=== PATIENT | female | born 1995 | race American Indian/Alaskan Native ===

== ENCOUNTER 2018-11-27 23:04 | Emergency (ER) | payer SELFPAY ==
--- NOTE | 2018-11-28 00:19 | XRay Report ---
CHEST 1 VIEW INDICATION / CLINICAL INFORMATION: Chest Pain. COMPARISON: None available. FINDINGS: SUPPORT DEVICES: None. HEART / MEDIASTINUM: No significant abnormality. LUNGS / PLEURA: No significant pulmonary or pleural abnormality. No pneumothorax. ADDITIONAL FINDINGS: No significant additional findings. IMPRESSION: 1. No acute findings. Signer Name: Armen Lynne MD Signed: 11/28/2018 12:15 AM Workstation Name: [id number]
[2018-11-28] MEDS ORDERED: SOLU-Medrol IM ONE (01:07)
[2018-11-28 01:51] LABS: HCG Qualitative,Urine Negative (Negative)
[2018-11-28 01:55] LABS: Bilirubin,Urine NEG (Negative); Blood,Urine NEG (Negative); Color,Urine Yellow (Yellow); Mucus,Urine 1+ /HPF; Protein,Urine <15 mg/dL mg/dL (Negative)
--- NOTE | 2018-11-28 02:48 | Emergency Department Report ---
- General Chief Complaint: Upper Respiratory Infection Stated Complaint: CHEST/ABDOMINAL PAIN Time Seen by Provider: 11/28/18 00:55 Source: patient Mode of arrival: Ambulatory Limitations: No Limitations - History of Present Illness Initial Comments: Patient is a 23-year-old -Russian female who is 2 months from a presents to the ED, no persistent dry cough with nasal sinus congestion and mild lower abdominal discomfort for the last 1 week, worse in the last 3 days. Patient denies fever, chills, nausea, vomiting, dizziness, diarrhea, shortness of breath, sore throat, headache, chest pain, no back pain, dysuria or urinary frequency and urgency. MD Complaint: cough, rhinorrhea, nasal congestion, other (suprapubic discomfort) -: Sudden, week(s) (1) Severity: moderate Severity scale (0 -10): 4 Quality: dull Consistency: intermittent Improves With: nothing Worsens With: nothing Associated Symptoms: denies other symptoms, cough, abdominal pain (lower, discomfort). denies: fever, chills, myalgias, diaphoresis, chest pain, shortness of breath, nausea, vomiting, dysuria, confusion, weight loss, epistaxis, hoarseness Treatments Prior to Arrival: none - Related Data Previous Rx's Medication Instructions Recorded Last Taken Type Azithromycin [Zithromax Z-SUN] 250 mg PO DAILY #6 tablet 11/28/18 Unknown Rx Benzonatate [Tessalon Perles] 100 mg PO Q8HR #30 capsule 11/28/18 Unknown Rx Ibuprofen [Motrin] 600 mg PO Q8H PRN #20 tablet 11/28/18 Unknown Rx methylPREDNISolone [Medrol 4MG 4 mg PO DAILY #21 tab.ds.pk 11/28/18 Unknown Rx DOSEPAK (21 tabs)] Allergies Allergy/AdvReac Type Severity Reaction Status Date / Time No Known Allergies Allergy Verified 11/27/18 23:50 ED Review of Systems ROS: Stated complaint: CHEST/ABDOMINAL PAIN Other details as noted in HPI Constitutional: denies: chills, fever Eyes: denies: eye pain, eye discharge, vision change ENT: congestion. denies: ear pain, throat pain, dental pain, hearing loss Respiratory: cough. denies: shortness of breath, wheezing Cardiovascular: denies: chest pain, palpitations Endocrine: no symptoms reported. denies: increased thirst, increased urine, unexplained weight gain Gastrointestinal: denies: abdominal pain, nausea, diarrhea Genitourinary: denies: urgency, dysuria, discharge Musculoskeletal: denies: back pain, joint swelling, arthralgia Skin: denies: rash, lesions Neurological: denies: headache, weakness, paresthesias Psychiatric: denies: anxiety, depression Hematological/Lymphatic: denies: easy bleeding, easy bruising ED Past Medical Hx - Past Medical History Previous Medical History?: Yes Additional medical history: bronchitis - Surgical History Past Surgical History?: Yes Additional Surgical History: - Social History Smoking Status: Never Smoker Substance Use Type: None - Medications Home Medications: Home Medications Medication Instructions Recorded Confirmed Last Taken Type Azithromycin [Zithromax Z-SUN] 250 mg PO DAILY #6 tablet 11/28/18 Unknown Rx Benzonatate [Tessalon Perles] 100 mg PO Q8HR #30 capsule 11/28/18 Unknown Rx Ibuprofen [Motrin] 600 mg PO Q8H PRN #20 tablet 11/28/18 Unknown Rx methylPREDNISolone [Medrol 4MG 4 mg PO DAILY #21 tab.ds.pk 11/28/18 Unknown Rx DOSEPAK (21 tabs)] ED Physical Exam - General Limitations: No Limitations General appearance: alert, in no apparent distress - Head Head exam: Present: atraumatic, normocephalic, normal inspection - Eye Eye exam: Present: normal appearance, PERRL, EOMI. Absent: scleral icterus Pupils: Present: normal accommodation - ENT ENT exam: Present: normal exam, normal orophraynx, mucous membranes moist, TM's normal bilaterally, normal external ear exam, other (Grossly congested nasal passages) - Neck Neck exam: Present: normal inspection, full ROM. Absent: tenderness, meningismus, lymphadenopathy, thyromegaly - Respiratory Respiratory exam: Present: normal lung sounds bilaterally. Absent: respiratory distress, wheezes, rales, rhonchi, chest wall tenderness, accessory muscle use, decreased breath sounds, prolonged expiratory - Cardiovascular Cardiovascular Exam: Present: regular rate, normal rhythm, normal heart sounds. Absent: systolic murmur, diastolic murmur, rubs, gallop - GI/Abdominal GI/Abdominal exam: Present: soft, normal bowel sounds. Absent: distended, guarding, hyperactive bowel sounds, hypoactive bowel sounds, mass - Rectal Rectal exam: Present: deferred - Extremities Exam Extremities exam: Present: normal inspection, full ROM, normal capillary refill - Back Exam Back exam: Present: normal inspection, full ROM. Absent: tenderness, CVA tenderness (R), CVA tenderness (L), muscle spasm, paraspinal tenderness, vertebral tenderness - Neurological Exam Neurological exam: Present: alert, oriented X3, CN II-XII intact, normal gait, reflexes normal - Psychiatric Psychiatric exam: Present: normal affect, normal mood - Skin Skin exam: Present: warm, dry, intact, normal color. Absent: rash ED Course Vital Signs 11/27/18 11/28/18 23:10 03:10 Temperature 98.7 F 98.3 F Pulse Rate 71 78 Respiratory 18 18 Rate Blood Pressure 119/73 Blood Pressure 124/70 [Left] O2 Sat by Pulse 100 98 Oximetry - Reevaluation(s) Reevaluation #1: 11/28/18 03:38 Patient is alert and oriented 3 and is not in distress with normal vital signs. Chest x-ray shows no acute cardiopulmonary abnormalities. Urinalysis is unremarkable. Patient discharged home on medications and advised to follow-up with her primary care physician in 7-10 days for reevaluation. Patient was also advised to return to the ED immediately if symptoms get worse. ED Medical Decision Making - Radiology Data Radiology results: report reviewed, image reviewed chest x-ray: No acute cardiopulmonary abnormalities - Medical Decision Making Patient is alert and oriented 3 and is not in distress with normal vital signs. Chest x-ray shows no acute cardiopulmonary abnormalities. Urinalysis is unremarkable. Patient discharged home on medications and advised to follow-up with her primary care physician in 7-10 days for reevaluation. Patient was also advised to return to the ED immediately if symptoms get worse. - Differential Diagnosis acute URI; Acute bronchitis, acute UTI, Viral URI Critical care attestation.: If time is entered above; I have spent that time in minutes in the direct care of this critically ill patient, excluding procedure time. ED Disposition Clinical Impression: Acute upper respiratory infection Acute bronchitis Qualifiers: Bronchitis organism: unspecified organism Qualified Code(s): J20.9 - Acute bronchitis, unspecified Disposition: - TO HOME OR SELFCARE Is pt being admited?: No Does the pt Need Aspirin: No Condition: Stable Instructions: Acute Bronchitis (ED) Additional Instructions: Take medications with food, drink plenty of fluids and follow-up with your primary care physician in 5-7 days for reevaluation. Return to the ED immediately if symptoms get worse. Prescriptions: methylPREDNISolone [Medrol 4MG DOSEPAK (21 tabs)] 4 mg PO DAILY #21 tab.ds.pk Ibuprofen [Motrin] 600 mg PO Q8H PRN #20 tablet PRN Reason: Pain Benzonatate [Tessalon Perles] 100 mg PO Q8HR #30 capsule Azithromycin [Zithromax Z-SUN] 250 mg PO DAILY #6 tablet Referrals: [facility] [Outside] - 3-5 Days Time of Disposition: 02:45 Print Language: [place]
[2018-11-28 03:25] VITALS: BP 124/70
== END 2018-11-28 03:10 | disposition home or self-care (01) ==
LOC: ED 23:04
DX: J20.9 Acute bronchitis, unspecified (principal); J06.9 Acute upper respiratory infection, unspecified
CPT/HCPCS: 71045; 81001; 81025; 93005; 93010; 96372; 99283; J2930

== ENCOUNTER 2019-05-12 15:39 | Emergency (ER) | payer SELFPAY | END 2019-05-12 17:30 | disposition left against medical advice (07) | LOC: ED 15:39 | DX: J00 Acute nasopharyngitis [common cold] (principal); Z53.21 Procedure and treatment not carried out due to patient leaving prior to being seen by health care provider ==

== ENCOUNTER 2019-07-11 20:52 | Emergency (ER) | payer SELFPAY | END 2019-07-11 23:10 | disposition left against medical advice (07) | LOC: ED 20:52 | DX: N93.9 Abnormal uterine and vaginal bleeding, unspecified (principal); Z53.21 Procedure and treatment not carried out due to patient leaving prior to being seen by health care provider ==

== ENCOUNTER 2019-07-25 17:50 | Emergency (ER) | payer SELFPAY ==
--- NOTE | 2019-07-25 18:40 | Event Note ---
ED Screening Note Date of service: 07/25/19 Time: 18:38 ED Screening Note: 24 y o female presents with intermittent bleeding for 1 month states heavy clotting also cc of pelvic pain This initial assessment/diagnostic orders/clinical plan/treatment(s) is/are subject to change based on patients health status, clinical progression and re- assessment by fellow clinical providers in the ED. Further treatment and workup at subsequent clinical providers discretion. Patient/guardian urged not to elope from the ED as their condition may be serious if not clinically assessed and managed. Initial orders include: ua,upt cbc
[2019-07-25 19:12] LABS: Basophils % (Auto) 0.6 % (0.0-1.8); Eosinophils # (Auto) 0.1 K/mm3 (0.0-0.4); Eosinophils % (Auto) 1.4 % (0.0-4.3); Hematocrit 37.8 % (30.3-42.9); Hemoglobin 12.4 gm/dl (10.1-14.3); Lymphocytes # (Auto) 1.9 K/mm3 (1.2-5.4); Mean Corpuscular HGB Conc 33 % (30-34); Mean Corpuscular Volume 83 fl (79-97); Monocytes # (Auto) 0.6 K/mm3 (0.0-0.8); Monocytes % (Auto) 8.5 % (0.0-7.3); Platelet Count 305 K/mm3 (140-440); Red Blood Count 4.57 M/mm3 (3.65-5.03)
[2019-07-25 19:36] LABS: Bacteria,Urine 1+ /HPF (Negative); Bilirubin,Urine NEG (Negative); Blood,Urine NEG (Negative); Color,Urine Yellow (Yellow); Mucus,Urine FEW /HPF; Protein,Urine <15 mg/dL mg/dL (Negative); Urobilinogen,Urine < 2.0 mg/dL (<2.0)
[2019-07-25] MEDS ORDERED: AZITHROMYCIN 250 MG TAB PO ONE (21:35)
[2019-07-25] MEDS ORDERED: LIDOCAINE-MPF (1%) 10 MG/1 ML VIAL 5 ML INFILTRATI ONE (21:35)
[2019-07-25] MEDS ORDERED: ONDANSETRON 4 MG ODT TAB PO ONE (21:35)
[2019-07-25] MEDS ORDERED: ACETAMINOPHEN 500 MG TAB PO ONE (21:35)
--- NOTE | 2019-07-25 23:08 | Emergency Department Report ---
ED Female HPI - General Chief complaint: Urogenital-Female Stated complaint: BLEEDING Source: patient Mode of arrival: Ambulatory Limitations: No Limitations - History of Present Illness Initial comments: Patient is [id number] 24-year-old -Mexican female who presents to the ED with complaint of acute onset persistent suprapubic pain, vaginal discharge, and persistent intermittent heavy vaginal bleeding, dyspareunia and vaginal pain for the last 1 month, worse in the last 2 days. Patient states that she is not on any control. Patient denies dizziness, fever, chills, nausea and vomiting or diarrhea, change in vision no syncope, low back pain, headache, chest pain or shortness of breath. MD Complaint: vaginal bleeding, vaginal discharge, pelvic pain, possible STD, other (Vaginal discharge) -: Sudden, month(s) (1) Location: suprapubic, other (vaginal) Radiation: suprapubic Severity: severe Severity scale (0 -10): 7 Quality: cramping, sharp, aching Consistency: constant Improves with: none Worsens with: intercourse Are you Now?: No Last Menstrual Period: 07/16/19 EDC: 04/21/20 - Related Data Sexually active: Yes : 11 Para: 1 A: 10 Previous Rx's Medication Instructions Recorded Last Taken Type Azithromycin [Zithromax Z-SUN] 250 mg PO DAILY #6 tablet 11/28/18 Unknown Rx Benzonatate [Tessalon Perles] 100 mg PO Q8HR #30 capsule 11/28/18 Unknown Rx methylPREDNISolone [Medrol 4MG 4 mg PO DAILY #21 tab.ds.pk 11/28/18 Unknown Rx DOSEPAK (21 tabs)] Ibuprofen [Motrin 600 MG tab] 600 mg PO Q8H PRN #30 tablet 07/25/19 Unknown Rx Ondansetron [Zofran Odt] 4 mg PO Q8HR #15 tab.rapdis 07/25/19 Unknown Rx cephALEXin [Keflex] 500 mg PO Q8HR #30 capsule 07/25/19 Unknown Rx medroxyPROGESTERone ACETATE 10 mg PO DAILY #10 tablet 07/25/19 Unknown Rx [Medroxyprogesterone Acetate] metroNIDAZOLE [Flagyl] 500 mg PO Q12HR #14 tab 07/25/19 Unknown Rx Allergies Allergy/AdvReac Type Severity Reaction Status Date / Time No Known Allergies Allergy Verified 11/27/18 23:50 ED Review of Systems ROS: Stated complaint: BLEEDING Other details as noted in HPI Constitutional: denies: chills, fever Eyes: denies: eye pain, eye discharge, vision change ENT: denies: ear pain, throat pain Respiratory: denies: cough, shortness of breath, wheezing Cardiovascular: denies: chest pain, palpitations Endocrine: no symptoms reported Gastrointestinal: abdominal pain (pelvic pain). denies: nausea, diarrhea Genitourinary: urgency, dysuria, frequency, discharge, abnormal menses (vaginal bleeding) Musculoskeletal: denies: back pain, joint swelling, arthralgia Skin: denies: rash, lesions Neurological: denies: headache, weakness, paresthesias Psychiatric: denies: anxiety, depression Hematological/Lymphatic: denies: easy bleeding, easy bruising ED Past Medical Hx - Past Medical History Previous Medical History?: No Additional medical history: bronchitis - Surgical History Past Surgical History?: Yes Additional Surgical History: x1 - Social History Smoking Status: Never Smoker Substance Use Type: None - Medications Home Medications: Home Medications Medication Instructions Recorded Confirmed Last Taken Type Azithromycin [Zithromax Z-SUN] 250 mg PO DAILY #6 tablet 11/28/18 Unknown Rx Benzonatate [Tessalon Perles] 100 mg PO Q8HR #30 capsule 11/28/18 Unknown Rx methylPREDNISolone [Medrol 4MG 4 mg PO DAILY #21 tab.ds.pk 11/28/18 Unknown Rx DOSEPAK (21 tabs)] Ibuprofen [Motrin 600 MG tab] 600 mg PO Q8H PRN #30 tablet 07/25/19 Unknown Rx Ondansetron [Zofran Odt] 4 mg PO Q8HR #15 tab.rapdis 07/25/19 Unknown Rx cephALEXin [Keflex] 500 mg PO Q8HR #30 capsule 07/25/19 Unknown Rx medroxyPROGESTERone ACETATE 10 mg PO DAILY #10 tablet 07/25/19 Unknown Rx [Medroxyprogesterone Acetate] metroNIDAZOLE [Flagyl] 500 mg PO Q12HR #14 tab 07/25/19 Unknown Rx ED Physical Exam - General Limitations: No Limitations General appearance: alert, in no apparent distress - Head Head exam: Present: atraumatic, normocephalic - Eye Eye exam: Present: normal appearance, PERRL, EOMI Pupils: Present: normal accommodation - ENT ENT exam: Present: normal exam, normal orophraynx, mucous membranes moist, TM's normal bilaterally, normal external ear exam - Neck Neck exam: Present: normal inspection, full ROM. Absent: tenderness - Respiratory Respiratory exam: Present: normal lung sounds bilaterally. Absent: respiratory distress, wheezes, rales, rhonchi, chest wall tenderness, accessory muscle use - Cardiovascular Cardiovascular Exam: Present: regular rate, normal rhythm, normal heart sounds. Absent: systolic murmur, diastolic murmur, rubs, gallop - GI/Abdominal GI/Abdominal exam: Present: soft, tenderness (Moderate suprapubic tenderness), normal bowel sounds. Absent: guarding, rebound, hyperactive bowel sounds, hypoactive bowel sounds - External exam: Present: normal external exam Speculum exam: Present: vaginal discharge, cervical discharge Bi-manual exam: Present: cervical motion tendernes, adnexal tenderness, uterine tenderness, other (Female RN child guidance counselor present during the pelvic exam) - Extremities Exam Extremities exam: Present: normal inspection, full ROM, normal capillary refill - Back Exam Back exam: Present: normal inspection, full ROM. Absent: tenderness, CVA te nderness (R), muscle spasm, paraspinal tenderness - Neurological Exam Neurological exam: Present: alert, oriented X3, CN II-XII intact, normal gait, reflexes normal - Psychiatric Psychiatric exam: Present: normal affect, normal mood - Skin Skin exam: Present: warm, dry, intact, normal color. Absent: rash ED Course Vital Signs 07/25/19 18:39 Temperature 97.9 F Pulse Rate 82 Respiratory 18 Rate Blood Pressure 131/77 O2 Sat by Pulse 99 Oximetry ED Medical Decision Making - Lab Data Result diagrams: 07/25/19 18:52 - Medical Decision Making This is a 24-year-old female who presented to the ED with complaint of acute onset persistent pelvic pain for 1 month with intermittent vaginal bleeding and dyspareunia as well as vaginal discharge. In the ED, patient is alert and oriented x3 and is not in distress. Urinalysis shows significant urinary tract infection but other lab test results are unremarkable. Pelvic exam shows signs of pelvic inflammatory disease. Patient was treated in the ED with azithromycin 1 g p.o. x1, also given Rocephin 1 g intramuscular injection. Patient was also treated for pain and on reevaluation, patient's pain is well controlled with medications. Wet prep was positive for Gardnerella vaginalis consistent with bacterial vaginosis. Patient was discharged home on antibiotics and pain medications. Patient was advised to follow-up with her [employer] physician or primary care physician in 7 to 10 days for reevaluation. Patient was advised to return to the ED immediately if symptoms get worse. - Differential Diagnosis PID; UTI; Appendicitis; Ectopic ; STD; Ovarian cyst; Colitis Critical care attestation.: If time is entered above; I have spent that time in minutes in the direct care of this critically ill patient, excluding procedure time. ED Disposition Clinical Impression: Acute pelvic inflammatory disease (PID), Acute urinary tract infection, Bacterial vaginosis, Pelvic pain, Dysfunctional uterine hemorrhage Disposition: TO HOME OR SELFCARE Is pt being admited?: No Does the pt Need Aspirin: No Condition: Stable Instructions: Bacterial Vaginosis (ED), Pelvic Inflammatory Disease (ED), Urinary Tract Infection in Women (ED), Dysfunctional Uterine Bleeding (ED) Additional Instructions: Your signs and symptoms are consistent with pelvic inflammatory disease, condition which can be caused by chlamydia, gonorrhea and other STDs. You were treated for this during your visit to the ED today. Therefore ensure that you sexual partner gets tested and treated at the [facility] for the same. Therefore take medications with food, drink plenty of fluids and follow-up with your primary care physician in 7 to 10 days for reevaluation. Return to the ED immediately if symptoms get worse. Prescriptions: metroNIDAZOLE [Flagyl] 500 mg PO Q12HR #14 tab cephALEXin [Keflex] 500 mg PO Q8HR #30 capsule medroxyPROGESTERone ACETATE [Medroxyprogesterone Acetate] 10 mg PO DAILY #10 tablet Ibuprofen [Motrin 600 MG tab] 600 mg PO Q8H PRN #30 tablet PRN Reason: Pain Ondansetron [Zofran Odt] 4 mg PO Q8HR #15 tab.rapdis Referrals: [facility] [Outside] - 3-5 Days Forms: STI Treatment and Prevention, Work/School Release Form(ED) Time of Disposition: 23:10 Print Language: WELSH
[2019-07-26 05:16] VITALS: BP 120/80
== END 2019-07-25 23:30 | disposition home or self-care (01) ==
LOC: ED 17:50
DX: N76.0 Acute vaginitis (principal); N73.0 Acute parametritis and pelvic cellulitis; N39.0 Urinary tract infection, site not specified; R10.2 Pelvic and perineal pain; N93.8 Other specified abnormal uterine and vaginal bleeding; Z79.899 Other long term (current) drug therapy; Z98.890 Other specified postprocedural states
CPT/HCPCS: 36415; 81001; 84702; 84703; 85025; 86900; 86901; 87086; 87210; 87591; 96372; 99284; J0696; Q0162

== ENCOUNTER 2021-01-03 00:38 | Emergency (ER) | payer SELFPAY | END 2021-01-03 00:43 | disposition left against medical advice (07) | LOC: ED 00:38 | DX: J40 Bronchitis, not specified as acute or chronic (principal); Z53.21 Procedure and treatment not carried out due to patient leaving prior to being seen by health care provider ==

== ENCOUNTER 2021-08-19 13:57 | Emergency (ER) | payer SELFPAY | END 2021-08-19 18:03 | disposition left against medical advice (07) | LOC: ED 13:57 | DX: M54.9 Dorsalgia, unspecified (principal); Z53.21 Procedure and treatment not carried out due to patient leaving prior to being seen by health care provider ==

== ENCOUNTER 2021-09-04 13:16 | Emergency (ER) | payer SELFPAY ==
[2021-09-04 16:09] LABS: Bacteria,Urine 1+ /HPF (Negative); Bilirubin,Urine NEG (Negative); Blood,Urine MOD (Negative); Color,Urine Amber (Yellow); Mucus,Urine FEW /HPF
[2021-09-04 16:49] LABS: WBC,Urine > 182.0 /HPF (0.0-6.0)
[2021-09-04] MEDS ORDERED: KETOROLAC 30 MG/1 ML INJ IM ONE (17:33)
[2021-09-04] MEDS ORDERED: ONDANSETRON 4 MG ODT TAB PO ONE (17:33)
[2021-09-04] MEDS ORDERED: LIDOCAINE-MPF (1%) 10 MG/1 ML VIAL 5 ML INFILTRATI ONE ×2 (17:33→21:00)
[2021-09-04] MEDS ORDERED: FAMOTIDINE 20 MG TAB PO ONE ×2 (17:34→21:00)
--- NOTE | 2021-09-04 18:52 | XRay Report ---
CHEST 2 VIEWS INDICATION / CLINICAL INFORMATION: chest pain. FINDINGS: SUPPORT DEVICES: None. HEART / MEDIASTINUM: No significant abnormality. LUNGS / PLEURA: No significant pulmonary or pleural abnormality. No pneumothorax. ADDITIONAL FINDINGS: No significant additional findings. IMPRESSION: 1. No acute findings. Signer Name: Vick Kelly MD Signed: 09/04/2021 6:47 PM Workstation Name: [id number]
[2021-09-04 20:07] LABS: Alanine Aminotransferase 40 units/L (7-56); Albumin 3.4 g/dL (3.9-5); BUN/Creatinine Ratio 9; Blood Urea Nitrogen 6 mg/dL (7-17); Calcium 8.8 mg/dL (8.4-10.2); Hemolysis Index 0
--- NOTE | 2021-09-04 20:21 | Emergency Department Report ---
ED General Adult HPI - General Chief complaint: Chest Pain Stated complaint: CHEST PAIN/FEVER/KIDNEY PAIN Source: patient Mode of arrival: Ambulatory Limitations: No Limitations - History of Present Illness Initial comments: Patient is a A0 26-year-old -[place] female with no past medical history presents to the ED with complaint of acute onset persistent low back p ain, right flank pain, suprapubic pressure, urinary frequency and urgency, dysuria, mid posterior thoracic pain for the last 1 month. Patient states that she has been taking [id number] Pyridium for suspected urinary tract infection but that the symptoms have been persistent and constant. Patient also states that in the last 3 days, the symptoms have worsened such that she has not even been able to leave her bed because of worsening back pain and nausea and vomiting. Patient denies dizziness, syncope, fever, chills, diarrhea, chest pain or shortness of breath, neck pain, headache, lightheadedness, vaginal bleeding or vaginal discharge. MD Complaint: Nausea and vomiting, right flank pain, low back pain, mid back pain -: Sudden, month(s) (1) Location: back, abdomen Radiation: non-radiation Severity scale (0 -10): 7 Quality: aching, sharp Consistency: constant Improves with: none Worsens with: movement Associated Symptoms: denies other symptoms, loss of appetite, malaise, nausea/vomiting. denies: confusion, chest pain, cough, diaphoresis, fever/chills, headaches, rash, seizure, shortness of breath, syncope, weakness Treatments Prior to Arrival: none - Related Data Previous Rx's Medication Instructions Recorded Last Taken Type Azithromycin [Zithromax Z-SUN] 250 mg PO DAILY #6 tablet 11/28/18 Unknown Rx Benzonatate [Tessalon Perles] 100 mg PO Q8HR #30 capsule 11/28/18 Unknown Rx methylPREDNISolone [Medrol 4MG 4 mg PO DAILY #21 tab.ds.pk 11/28/18 Unknown Rx DOSEPAK (21 tabs)] cephALEXin [Keflex] 500 mg PO Q8HR #30 capsule 07/25/19 Unknown Rx medroxyPROGESTERone ACETATE 10 mg PO DAILY #10 tablet 07/25/19 Unknown Rx [Medroxyprogesterone Acetate] Doxycycline Hyclate 100 mg PO Q12H #20 tablet. 11/27/19 Unknown Rx Fluconazole (Nf) [Diflucan TAB] 150 mg PO ONCE #1 tablet 11/27/19 Unknown Rx Metoclopramide [Reglan] 10 mg PO Q8H PRN #21 tab 11/27/19 Unknown Rx Fluconazole [Diflucan TAB] 200 mg PO QDAY #1 tablet 09/04/21 Unknown Rx Ibuprofen [Motrin 600 MG tab] 600 mg PO Q8H PRN #30 tablet 09/04/21 Unknown Rx Ondansetron [Zofran ODT TAB] 4 mg PO Q6HR PRN #20 tab.rapdis 09/04/21 Unknown Rx Sulfamethoxazole/Trimethoprim 1 each PO Q12H #20 tablet 09/04/21 Unknown Rx [Bactrim DS TAB] Allergies Allergy/AdvReac Type Severity Reaction Status Date / Time No Known Allergies Allergy Verified 11/27/18 23:50 ED Review of Systems ROS: Stated complaint: CHEST PAIN/FEVER/KIDNEY PAIN Other details as noted in HPI Constitutional: malaise, weakness. denies: chills, fever Eyes: denies: eye pain, eye discharge, vision change ENT: denies: ear pain, throat pain Respiratory: denies: cough, shortness of breath, wheezing Cardiovascular: chest pain. denies: palpitations Endocrine: no symptoms reported Gastrointestinal: abdominal pain ( right flank pain), nausea, vomiting. denies: diarrhea, hematochezia Genitourinary: urgency, dysuria, frequency. denies: discharge, abnormal menses, dyspareunia Musculoskeletal: back pain (Mid and low back pain), arthralgia, myalgia. denies: joint swelling Skin: denies: rash, lesions Neurological: denies: headache, weakness, paresthesias Psychiatric: denies: anxiety, depression Hematological/Lymphatic: denies: easy bleeding, easy bruising ED Past Medical Hx - Past Medical History Additional medical history: bronchitis - Surgical History Additional Surgical History: x1 - Social History Smoking Status: Never Smoker Substance Use Type: None - Medications Home Medications: Home Medications Medication Instructions Recorded Confirmed Last Taken Type Azithromycin [Zithromax Z-SUN] 250 mg PO DAILY #6 tablet 11/28/18 Unknown Rx Benzonatate [Tessalon Perles] 100 mg PO Q8HR #30 capsule 11/28/18 Unknown Rx methylPREDNISolone [Medrol 4MG 4 mg PO DAILY #21 tab.ds.pk 11/28/18 Unknown Rx DOSEPAK (21 tabs)] cephALEXin [Keflex] 500 mg PO Q8HR #30 capsule 07/25/19 Unknown Rx medroxyPROGESTERone ACETATE 10 mg PO DAILY #10 tablet 07/25/19 Unknown Rx [Medroxyprogesterone Acetate] Doxycycline Hyclate 100 mg PO Q12H #20 tablet. 11/27/19 Unknown Rx Fluconazole (Nf) [Diflucan TAB] 150 mg PO ONCE #1 tablet 11/27/19 Unknown Rx Metoclopramide [Reglan] 10 mg PO Q8H PRN #21 tab 11/27/19 Unknown Rx Fluconazole [Diflucan TAB] 200 mg PO QDAY #1 tablet 09/04/21 Unknown Rx Ibuprofen [Motrin 600 MG tab] 600 mg PO Q8H PRN #30 tablet 09/04/21 Unknown Rx Ondansetron [Zofran ODT TAB] 4 mg PO Q6HR PRN #20 tab.rapdis 09/04/21 Unknown Rx Sulfamethoxazole/Trimethoprim 1 each PO Q12H #20 tablet 09/04/21 Unknown Rx [Bactrim DS TAB] ED Physical Exam - General Limitations: No Limitations General appearance: alert, in no apparent distress - Head Head exam: Present: atraumatic, normocephalic, normal inspection - Eye Eye exam: Present: normal appearance, PERRL, EOMI Pupils: Present: normal accommodation - ENT ENT exam: Present: normal exam, normal orophraynx, mucous membranes moist, TM's normal bilaterally, normal external ear exam - Neck Neck exam: Present: normal inspection, full ROM. Absent: tenderness - Respiratory Respiratory exam: Present: normal lung sounds bilaterally. Absent: respiratory distress, wheezes, rales, rhonchi, chest wall tenderness, accessory muscle use, decreased breath sounds, prolonged expiratory - Cardiovascular Cardiovascular Exam: Present: regular rate, normal rhythm, normal heart sounds. Absent: systolic murmur, diastolic murmur, rubs, gallop - GI/Abdominal GI/Abdominal exam: Present: soft, tenderness (Palpable right flank tenderness), normal bowel sounds. Absent: guarding, rebound, hyperactive bowel sounds, hypoactive bowel sounds, organomegaly, mass - Bi-manual exam: Present: other (Pelvic exam deferred at this time) - Extremities Exam Extremities exam: Present: normal inspection, full ROM, normal capillary refill. Absent: tenderness - Back Exam Back exam: Present: normal inspection, full ROM, tenderness (Palpable lumbosacral paraspinal musculoskeletal tenderness with right CVA tenderness), CVA tenderness (R), muscle spasm, paraspinal tenderness. Absent: CVA tenderness (L), vertebral tenderness - Neurological Exam Neurological exam: Present: alert, oriented X3, CN II-XII intact, normal gait, r eflexes normal - Psychiatric Psychiatric exam: Present: normal affect, normal mood - Skin Skin exam: Present: warm, dry, intact, normal color. Absent: rash ED Course Vital Signs 09/04/21 14:35 Temperature 99.6 F Pulse Rate 109 H Respiratory 22 Rate Blood Pressure 118/66 O2 Sat by Pulse 99 Oximetry ED Medical Decision Making - Lab Data Result diagrams: 09/04/21 17:49 - Radiology Data Radiology results: report reviewed, image reviewed [address] [address] XRay Report Signed Patient: BAY STEVENS MR#: [id number] : 1995 Acct:[id number] Age/Sex: 26 / F ADM Date: 09/04/21 Loc: ED Attending Dr: Ordering Physician: JAYSHREE MALHOTRA Date of Service: 09/04/21 Procedure(s): XR chest 1V ap Accession Number(s): [id number] cc: JAYSHREE MALHOTRA Fluoro Time In Minutes: CHEST 2 VIEWS INDICATION / CLINICAL INFORMATION: chest pain. FINDINGS: SUPPORT DEVICES: None. HEART / MEDIASTINUM: No significant abnormality. LUNGS / PLEURA: No significant pulmonary or pleural abnormality. No pneumothorax. ADDITIONAL FINDINGS: No significant additional findings. IMPRESSION: 1. No acute findings. Signer Name: Vick Kelly MD Signed: 09/04/2021 6:47 PM Workstation Name: [id number] Transcribed By: Dictated By: Vick Kelly MD Electronically Authenticated By: Vick Kelly MD Signed Date/Time: 09/04/211846 DD/ 46 TD/TT: - Medical Decision Making This is a A0 26-year-old -[place] female with no past medical his tory presents to the ED with complaint of acute onset persistent low back pain, right flank pain, suprapubic pressure, urinary frequency and urgency, dysuria, mid posterior thoracic pain for the last 1 month. Patient states that she has been taking [id number] Pyridium for suspected urinary tract infection but that the symptoms have been persistent and constant. Patient also states that in the last 3 days, the symptoms have worsened such that she has not even been able to leave her bed because of worsening back pain and nausea and vomiting. In the ED, patient is alert and oriented x3 and is not in any distress. Patient was treated for pain in the ED, also treated for nausea and vomiting. Chest x- ray showed no acute cardiopulmonary abnormalities or pneumonitis. Urinalysis showed significant urinary tract infection. - Differential Diagnosis UTI; pyelonephritis; dehydration; muscle spasm; Critical care attestation.: If time is entered above; I have spent that time in minutes in the direct care of this critically ill patient, excluding procedure time. ED Disposition Clinical Impression: Nausea and vomiting in adult patient, Acute urinary tract infection, Acute abdominal pain in right flank Disposition: 01 HOME / SELF CARE / HOMELESS Is pt being admited?: No Does the pt Need Aspirin: No Condition: Stable Instructions: Urinary Tract Infection, Adult, Mrku-wk-Adon, Nausea and Vomiting, Adult, Buru-pi-Ewqr, Flank Pain, Adult, Vvsj-wx-Tmfa, Abdominal Pain, Adult, Abuh-bz-Hmgy Additional Instructions: All lab test results were reviewed and are all nonactionable except for significant urinary tract infection in urinalysis. Therefore take medication with food, drink plenty of fluids, follow-up with your primary care physician in 5 to 7 days for reevaluation. Return to the ED immediately if symptoms get worse. Prescriptions: Sulfamethoxazole/Trimethoprim [Bactrim DS TAB] 1 each PO Q12H #20 tablet Fluconazole [Diflucan TAB] 200 mg PO QDAY #1 tablet Ibuprofen [Motrin 600 MG tab] 600 mg PO Q8H PRN #30 tablet PRN Reason: Pain Ondansetron [Zofran ODT TAB] 4 mg PO Q6HR PRN #20 tab.rapdis PRN Reason: Nausea Referrals: [facility] [Provider Group] - 7-10 days Forms: Work/School Release Form(ED) Time of Disposition: 20:25 Print Language: VIETNAMESE
[2021-09-04] MEDS ORDERED: KETOROLAC 60 MG/2 ML INJ IM ONE (21:00)
[2021-09-04] MEDS ORDERED: ONDANSETRON 4 MG/2 ML INJ IM ONE (21:00)
[2021-09-04] MEDS ORDERED: PROMETHAZINE 25 MG TAB PO ONE (21:02)
[2021-09-04 22:24] VITALS: BP 121/68
--- NOTE | 2021-09-05 10:16 | Electrocardiograph Report ---
[facility] Test Date: 2021-09-04 Test Time: 14:47:21 Pat Name: BAY STEVENS Department: Room: Gender: F Collection Advisor: PAYTON OGDENB: 1995 Requested By: YVONNE WYNN Order Number: [id number] Reading MD: Jack Venegas Measurements Intervals [place] Rate: 98 P: 52 MT: 143 QRS: 45 QRSD: 94 T: 28 QT: 320 QTc: 410 Interpretive Statements Sinus rhythm No previous ECG available for comparison Electronically Signed On 09-05-2021 10:15:47 EDT by Jack Venegas
== END 2021-09-04 22:24 | disposition home or self-care (01) ==
LOC: ED 13:16
DX: N39.0 Urinary tract infection, site not specified (principal); R11.2 Nausea with vomiting, unspecified; M54.50 Low back pain, unspecified
CPT/HCPCS: 36415; 71046; 80053; 81001; 84484; 84702; 87076; 87086; 87186; 93005; 96372; 99284; J0696; J1885; J2405; J3490; Q0169; 71045

== ENCOUNTER 2021-12-07 05:51 | Emergency (ER) | payer SELFPAY ==
--- NOTE | 2021-12-07 06:31 | XRay Report ---
CHEST 2 VIEWS INDICATION / CLINICAL INFORMATION: Chest Pain. COMPARISON: Chest x-ray 09/04/2021 FINDINGS: SUPPORT DEVICES: None. HEART / MEDIASTINUM: Heart size and mediastinal contour appear within normal limits. LUNGS / PLEURA: No significant pulmonary or pleural abnormality. No pneumothorax. BONES: No significant osseous abnormality. ADDITIONAL FINDINGS: No significant additional findings. IMPRESSION: 1. No active cardiopulmonary disease. Signer Name: Albert Silva II, MD Signed: 12/07/2021 6:26 AM Workstation Name: [id number]
[2021-12-07 10:55] LABS: Hematocrit 38.5 % (30.3-42.9); Mean Corpuscular HGB Conc 34 % (30-34); Mean Corpuscular Volume 86 fl (79-97); Platelet Count 277 K/mm3 (140-440); Red Blood Count 4.47 M/mm3 (3.65-5.03); Red Cell Distribution Width 15.3 % (13.2-15.2)
[2021-12-07 11:20] LABS: Alanine Aminotransferase 9 units/L (7-56); Albumin 4.3 g/dL (3.9-5); Blood Urea Nitrogen 6 mg/dL (7-17); Calcium 9.2 mg/dL (8.4-10.2); Hemolysis Index 2
[2021-12-07 11:23] LABS: BUN/Creatinine Ratio 10
[2021-12-07 12:42] LABS: Bilirubin,Urine NEG (Negative); Blood,Urine NEG (Negative); Color,Urine Yellow (Yellow); Protein,Urine <15 mg/dL mg/dL (Negative); Urobilinogen,Urine < 2.0 mg/dL (<2.0)
[2021-12-07 12:43] LABS: Bacteria,Urine 4+ /HPF (Negative); HCG Qualitative,Urine Negative (Negative); Mucus,Urine FEW /HPF
[2021-12-07] MEDS ORDERED: KETOROLAC 10 MG TAB PO ONE (12:55)
--- NOTE | 2021-12-07 12:57 | Emergency Department Report ---
ED Chest Pain HPI - General Chief Complaint: Chest Pain Stated Complaint: CHEST PAIN Time Seen by Provider: 12/07/21 10:10 Source: patient Mode of arrival: Ambulatory Limitations: No Limitations - History of Present Illness Initial Comments: 26-year-old black female with a past medical history of hypertension presents to the emergency department for evaluation of 3-day history of chest pain. She states that pain is associated with shortness of breath and fever but she denies nausea, vomiting, dizziness, and diaphoresis. Pain is worse with deep ins piration and palpation. She also complains of mild odorous urine and perineal area. She states that she did not have any vaginal discharge per se but it just feels and smells different down there for her. She states that 2 days ago she had a fever of 102 but she denies abdominal pain and diarrhea. MD Complaint: chest pain -: Gradual, days(s) (3) Onset: during rest Pain Location: substernal, right chest Severity: moderate Severity scale (0 -10): 5 Quality: sharp Consistency: intermittent Worsens With: inspiration, palpation, movement re: dyspnea. denies: nausea, vomting, diaphoresis, sense of impending doom Other Symptoms: fever. denies: cough, syncope, rash, acid taste in mouth, leg swelling, palpitations, burping Aspirin use within the Past 7 Days: (0) No - Related Data On Oral Contraceptives: No Previous Rx's Medication Instructions Recorded Last Taken Type Azithromycin [Zithromax Z-SUN] 250 mg PO DAILY #6 tablet 11/28/18 Unknown Rx Benzonatate [Tessalon Perles] 100 mg PO Q8HR #30 capsule 11/28/18 Unknown Rx methylPREDNISolone [Medrol 4MG 4 mg PO DAILY #21 tab.ds.pk 11/28/18 Unknown Rx DOSEPAK (21 tabs)] cephALEXin [Keflex] 500 mg PO Q8HR #30 capsule 07/25/19 Unknown Rx medroxyPROGESTERone ACETATE 10 mg PO DAILY #10 tablet 07/25/19 Unknown Rx [Medroxyprogesterone Acetate] Doxycycline Hyclate 100 mg PO Q12H #20 tablet 11/27/19 Unknown Rx Fluconazole (Nf) [Diflucan TAB] 150 mg PO ONCE #1 tablet 11/27/19 Unknown Rx Metoclopramide [Reglan] 10 mg PO Q8H PRN #21 tab 11/27/19 Unknown Rx Fluconazole [Diflucan TAB] 200 mg PO QDAY #1 tablet 09/04/21 Unknown Rx Ibuprofen [Motrin 600 MG tab] 600 mg PO Q8H PRN #30 tablet 09/04/21 Unknown Rx Ondansetron [Zofran ODT TAB] 4 mg PO Q6HR PRN #20 tab.rapdis 09/04/21 Unknown Rx Sulfamethoxazole/Trimethoprim 1 each PO Q12H #20 tablet 09/04/21 Unknown Rx [Bactrim DS TAB] Naproxen [Naprosyn] 500 mg PO BID PRN #14 tab 12/07/21 Unknown Rx metroNIDAZOLE [Flagyl] 500 mg PO BID 7 Days #14 tab 12/07/21 Unknown Rx Allergies Allergy/AdvReac Type Severity Reaction Status Date / Time No Known Allergies Allergy Verified 11/27/18 23:50 Heart Score - HEART Score History: Slightly suspicious EKG: Normal Age: < 45 Risk factors: No known risk factors Troponin: < normal limit HEART Score: 0 - EKG Read Time Time EKG Completed: 06:06 EKG Read Time: 06:10 - Critical Actions Critical Actions: 0-3 pts:0.9-1.7%risk of adverse cardiac event.Candidate for discharge ED Review of Systems ROS: Stated complaint: CHEST PAIN Other details as noted in HPI Comment: All other systems reviewed and negative Constitutional: fever. denies: chills, diaphoresis, malaise, weakness Eyes: denies: eye pain, vision change ENT: denies: congestion Respiratory: shortness of breath. denies: cough, SOB with exertion, SOB at rest, stridor, wheezing Cardiovascular: chest pain. denies: palpitations, dyspnea on exertion, or thopnea, edema, syncope, paroxysmal nocturnal dyspnea Gastrointestinal: denies: abdominal pain, nausea, vomiting, diarrhea, hematemesis Genitourinary: denies: urgency, dysuria, frequency, hematuria, discharge, abnormal menses, dyspareunia Musculoskeletal: denies: back pain Psychiatric: denies: anxiety, depression ED Past Medical Hx - Past Medical History Previous Medical History?: Yes Hx Hypertension: Yes Additional medical history: bronchitis - Surgical History Additional Surgical History: x1 - Social History Smoking Status: Unknown if ever smoked - Medications Home Medications: Home Medications Medication Instructions Recorded Confirmed Last Taken Type Azithromycin [Zithromax Z-SUN] 250 mg PO DAILY #6 tablet 11/28/18 Unknown Rx Benzonatate [Tessalon Perles] 100 mg PO Q8HR #30 capsule 11/28/18 Unknown Rx methylPREDNISolone [Medrol 4MG 4 mg PO DAILY #21 tab.ds.pk 11/28/18 Unknown Rx DOSEPAK (21 tabs)] cephALEXin [Keflex] 500 mg PO Q8HR #30 capsule 07/25/19 Unknown Rx medroxyPROGESTERone ACETATE 10 mg PO DAILY #10 tablet 07/25/19 Unknown Rx [Medroxyprogesterone Acetate] Doxycycline Hyclate 100 mg PO Q12H #20 tablet. 11/27/19 Unknown Rx Fluconazole (Nf) [Diflucan TAB] 150 mg PO ONCE #1 tablet 11/27/19 Unknown Rx Metoclopramide [Reglan] 10 mg PO Q8H PRN #21 tab 11/27/19 Unknown Rx Fluconazole [Diflucan TAB] 200 mg PO QDAY #1 tablet 09/04/21 Unknown Rx Ibuprofen [Motrin 600 MG tab] 600 mg PO Q8H PRN #30 tablet 09/04/21 Unknown Rx Ondansetron [Zofran ODT TAB] 4 mg PO Q6HR PRN #20 tab.rapdis 09/04/21 Unknown Rx Sulfamethoxazole/Trimethoprim 1 each PO Q12H #20 tablet 09/04/21 Unknown Rx [Bactrim DS TAB] Naproxen [Naprosyn] 500 mg PO BID PRN #14 tab 12/07/21 Unknown Rx metroNIDAZOLE [Flagyl] 500 mg PO BID 7 Days #14 tab 12/07/21 Unknown Rx ED Physical Exam - General Limitations: No Limitations General appearance: alert, in no apparent distress - Head Head exam: Present: atraumatic, normocephalic - Eye Eye exam: Present: normal appearance. Absent: scleral icterus, conjunctival injection, periorbital swelling, periorbital tenderness - ENT ENT exam: Present: normal exam, normal orophraynx - Neck Neck exam: Present: normal inspection, full ROM. Absent: tenderness, lymphadenopathy - Respiratory Respiratory exam: Present: normal lung sounds bilaterally, chest wall te nderness. Absent: respiratory distress, wheezes, rales, rhonchi, stridor - Cardiovascular Cardiovascular Exam: Present: regular rate, normal rhythm, normal heart sounds - GI/Abdominal GI/Abdominal exam: Present: soft, normal bowel sounds. Absent: distended, tenderness, guarding, rebound, rigid - External exam: Present: normal external exam Speculum exam: Present: vaginal discharge. Absent: erythema, cervical discharge, vaginal bleeding, foreign body Bi-manual exam: Absent: cervical motion tendernes, adnexal tenderness, uterine tenderness - Extremities Exam Extremities exam: Present: normal inspection, normal capillary refill. Absent: pedal edema, joint swelling, calf tenderness - Back Exam Back exam: Present: normal inspection. Absent: CVA tenderness (R), CVA tenderness (L) - Neurological Exam Neurological exam: Present: alert, oriented X3 - Psychiatric Psychiatric exam: Present: normal affect, normal mood - Skin Skin exam: Present: warm, dry, intact, normal color ED Course Vital Signs 12/07/21 12/07/21 06:00 12:50 Temperature 98.6 F 98.7 F Pulse Rate 88 64 Respiratory 16 16 Rate Blood Pressure 124/82 Blood Pressure 124/82 112/62 [Right] O2 Sat by Pulse 100 100 Oximetry TONY score - Tony Score Age > 65: (0) No Aspirin use within the Past 7 Days: (0) No 3 or more CAD Risk Factors: (0) No 2 or more Angina events in past 24 hrs: (1) Yes Known CAD with more than 50% Stenosis: (0) No Elevated Cardiac Markers: (0) No ST Deviation Greater than 0.5mm: (0) No TONY Score: 1 ED Medical Decision Making - Lab Data Result diagrams: 12/07/21 10:43 12/07/21 10:43 - Radiology Data Radiology results: report reviewed, image reviewed Chest x-ray: FINDINGS: SUPPORT DEVICES: None. HEART / MEDIASTINUM: Heart size and mediastinal contour appear within normal limits. LUNGS / PLEURA: No significant pulmonary or pleural abnormality. No pneumothorax. BONES: No significant osseous abnormality. ADDITIONAL FINDINGS: No significant additional findings. IMPRESSION: 1. No active cardiopulmonary disease. - Medical Decision Making 26-year-old black female with a past medical history of hypertension presents to the emergency department for evaluation of 3-day history of chest pain. She states that pain is associated with shortness of breath and fever but she denies nausea, vomiting, dizziness, and diaphoresis. Pain is worse with deep inspiration and palpation. She also complains of mild odorous urine and perineal area. She states that she did not have any vaginal discharge per se but it just feels and smells different down there for her. She states that 2 days ago she had a fever of 102 but she denies abdominal pain and diarrhea. Physical exam noted to have chest wall tenderness. EKG without any acute i schemic abnormalities noted, chest x-ray within normal limits, and troponin within normal limits. Low suspicion for ACS. Wet prep positive for bacterial vaginosis. Patient will be discharged home with 7-day course of Flagyl along with naproxen to take as directed. She is advised to follow-up with her primary care provider and [facility] for further evaluation and management. She is advised to return to the emergency department as needed. She verbalizes understanding of and agreement with plan of care. Critical care attestation.: If time is entered above; I have spent that time in minutes in the direct care of this critically ill patient, excluding procedure time. ED Disposition Clinical Impression: Bacterial vaginosis Chest pain Qualifiers: Chest pain type: unspecified Qualified Code(s): R07.9 - Chest pain, unspecified Disposition: 01 HOME / SELF CARE / HOMELESS Is pt being admited?: No Does the pt Need Aspirin: No Condition: Stable Instructions: Bacterial Vaginosis, Yuwg-ea-Oqjz, Nonspecific Chest Pain, Adult, Fuqf-hc-Iutz, Bacterial Vaginosis (ED) Additional Instructions: Take medications as prescribed. Follow-up with your primary care provider for further evaluation and management. Return to the emergency department as needed. Prescriptions: metroNIDAZOLE [Flagyl] 500 mg PO BID 7 Days #14 tab Naproxen [Naprosyn] 500 mg PO BID PRN #14 tab PRN Reason: Pain, Moderate (4-6) Referrals: IVAN NAVARRO MD [Staff Physician] - 3-5 Days DAVID VILLALBA MD [Staff Physician] - 3-5 Days Forms: STI Treatment and Prevention Time of Disposition: 12:57 ED Female HPI - General Chief complaint: Chest Pain Stated complaint: CHEST PAIN Time Seen by Provider: 12/07/21 10:10 Source: patient Mode of arrival: Ambulatory Limitations: No Limitations - History of Present Illness Complaint: other (Malodorous urine and perineal area) -: Gradual, days(s) Severity scale (0 -10): 0 Worsens with: intercourse Are you Now?: No Last Menstrual Period: 10/31/21 EDC: 08/07/22 - Related Data Sexually active: Yes Previous Rx's Medication Instructions Recorded Last Taken Type Azithromycin [Zithromax Z-SUN] 250 mg PO DAILY #6 tablet 11/28/18 Unknown Rx Benzonatate [Tessalon Perles] 100 mg PO Q8HR #30 capsule 11/28/18 Unknown Rx methylPREDNISolone [Medrol 4MG 4 mg PO DAILY #21 tab.ds.pk 11/28/18 Unknown Rx DOSEPAK (21 tabs)] cephALEXin [Keflex] 500 mg PO Q8HR #30 capsule 07/25/19 Unknown Rx medroxyPROGESTERone ACETATE 10 mg PO DAILY #10 tablet 07/25/19 Unknown Rx [Medroxyprogesterone Acetate] Doxycycline Hyclate 100 mg PO Q12H #20 tablet. 11/27/19 Unknown Rx Fluconazole (Nf) [Diflucan TAB] 150 mg PO ONCE #1 tablet 11/27/19 Unknown Rx Metoclopramide [Reglan] 10 mg PO Q8H PRN #21 tab 11/27/19 Unknown Rx Fluconazole [Diflucan TAB] 200 mg PO QDAY #1 tablet 09/04/21 Unknown Rx Ibuprofen [Motrin 600 MG tab] 600 mg PO Q8H PRN #30 tablet 09/04/21 Unknown Rx Ondansetron [Zofran ODT TAB] 4 mg PO Q6HR PRN #20 tab.rapdis 09/04/21 Unknown Rx Sulfamethoxazole/Trimethoprim 1 each PO Q12H #20 tablet 09/04/21 Unknown Rx [Bactrim DS TAB] Naproxen [Naprosyn] 500 mg PO BID PRN #14 tab 12/07/21 Unknown Rx metroNIDAZOLE [Flagyl] 500 mg PO BID 7 Days #14 tab 12/07/21 Unknown Rx Allergies Allergy/AdvReac Type Severity Reaction Status Date / Time No Known Allergies Allergy Verified 11/27/18 23:50
[2021-12-07 13:18] VITALS: BP 112/62
--- NOTE | 2021-12-08 10:01 | Electrocardiograph Report ---
[facility] Test Date: 2021-12-07 Test Time: 06:06:58 Pat Name: BAY STEVENS Department: Room: Gender: F Vinyl Dipper: MIKE : 1995 Requested By: JOSE MARIE Order Number: [id number] Reading MD: Horace Darling Measurements Intervals [place] Rate: 84 P: 50 NC: 153 QRS: 42 QRSD: 97 T: 40 QT: 361 QTc: 428 Interpretive Statements Sinus rhythm Compared to ECG 09/04/2021 14:47:21 No significant changes Electronically Signed On 12-08-2021 10:01:16 EDT by Horace Darling
== END 2021-12-07 13:17 | disposition home or self-care (01) ==
LOC: ED 05:51
DX: R07.9 Chest pain, unspecified (principal); N76.0 Acute vaginitis; B96.89 Other specified bacterial agents as the cause of diseases classified elsewhere; I10 Essential (primary) hypertension; Z98.890 Other specified postprocedural states
CPT/HCPCS: 36415; 71046; 80053; 81001; 81025; 84484; 85027; 87210; 93005; 99284

== ENCOUNTER 2022-01-12 15:10 | Emergency (ER) | payer SELFPAY ==
[2022-01-12 16:16] VITALS: BP 115/71
== END 2022-01-12 17:00 | disposition left against medical advice (07) ==
LOC: ED 15:10
DX: O20.8 Other hemorrhage in early pregnancy (principal); Z3A.00 Weeks of gestation of pregnancy not specified; Z53.21 Procedure and treatment not carried out due to patient leaving prior to being seen by health care provider